=== PATIENT | male | born 1975 | race Caucasian/White ===

== ENCOUNTER 2020-04-04 21:33 | Emergency (ER) | payer MEDICAID ==
[~2020-04-04] VITALS: Ht 182.9 cm; Wt 90.7 kg
[2020-04-04 21:50] VITALS: BP 103/65
--- NOTE | 2020-04-04 21:50 | NUR ---
PT PLACED IN TENT FOR COVID PRECAUTIONS
--- NOTE | 2020-04-04 23:44 | NUR ---
PT TO BE DISCHARGED AFTER COVID SWABING. PT CALLED OUTSIDE WITH NO RESPONSE. WILL CALL AGAIN.
--- NOTE | 2020-04-05 00:10 | NUR ---
PT CALLED FOR 2ND TIME OUTSIDE. PT LEFT WITHOUT DC INSTRUCTIONS OR COVID SWAB.
== END 2020-04-05 00:10 | disposition home or self-care (01) ==
LOC: MED 21:33
DX: B34.9 Viral infection, unspecified (principal); Z20.828 Contact with and (suspected) exposure to other viral communicable diseases; R60.0 Localized edema; R11.2 Nausea with vomiting, unspecified; N18.9 Chronic kidney disease, unspecified; I50.9 Heart failure, unspecified
CPT/HCPCS: 99281